=== PATIENT | male | born 1990 | race Caucasian/White ===

== ENCOUNTER 2018-01-09 13:38 | Emergency (ER) | payer OTHER ==
[~2018-01-09] VITALS: Ht 170.2 cm; Wt 90.7 kg
[~2018-01-09 13:38] MED LIST: AUGMENTIN 875875 MG PO; AZITHROMYCIN 2250 MG PO; BACTRIM DS TAB1 EACH PO; DUONEB 2.5-0.5 M3 ML INH; IBUDONE 5-2001 EACH PO; LEVAQUIN 750 M750 MG PO; MEDROLDOSEPACK PO; NEBULIZER MISCELL; NOHOMEMEDICATIONS; PREDNISONE 20 M20 MG PO; PROAIR HFA8.5 GM PO; VENTOLIN HFA 1818 GM INH
[2018-01-09] MEDS ORDERED: NORCO 5-325 TA1 EACH PO (15:51)
[2018-01-09] MEDS ORDERED: IBUPROFEN 600600 M1 PO (15:51)
[2018-01-09] MEDS ORDERED: AUGMENTIN 875-1 EACH PO (15:51)
[2018-01-09 16:07] VITALS: BP 110/78
== END 2018-01-09 16:08 | disposition home or self-care (01) ==
LOC: M.ERS 13:38
DX: S61.412A Laceration without foreign body of left hand, initial encounter (principal); Z23 Encounter for immunization; F17.210 Nicotine dependence, cigarettes, uncomplicated; Z88.8 Allergy status to other drugs, medicaments and biological substances; W26.0XXA Contact with knife, initial encounter; Y93.89 Activity, other specified; Y92.89 Other specified places as the place of occurrence of the external cause; Y99.8 Other external cause status

== ENCOUNTER 2019-06-01 14:41 | Emergency (ER) | payer OTHER ==
[~2019-06-01] VITALS: Ht 170.2 cm; Wt 85.7 kg
[~2019-06-01 14:41] MED LIST changes: +AUGMENTIN 875-1 EACH PO; +IBUPROFEN 600600 M1 PO; +NORCO 5-325 TA1 EACH PO
[2019-06-01 14:59] LABS: INFLUENZA A ANTIGEN Positive (Negative); INFLUENZA B ANTIGEN Negative (Negative)
[2019-06-01] MEDS ORDERED: TYLENOL WITH CO1 TA1 PO (15:19)
[2019-06-01] MEDS ORDERED: MEDROLDOSEPACK PO (15:19)
[2019-06-01] MEDS ORDERED: TAMIFLU75 MG PO (15:19)
[2019-06-01 15:29] VITALS: BP 124/89
== END 2019-06-01 15:31 | disposition home or self-care (01) ==
LOC: M.ERS 14:41
PROVIDERS: Family Medicine
DX: J09.X2 Influenza due to identified novel influenza A virus with other respiratory manifestations (principal); F17.210 Nicotine dependence, cigarettes, uncomplicated; Z91.048 Other nonmedicinal substance allergy status; Z88.8 Allergy status to other drugs, medicaments and biological substances

== ENCOUNTER 2019-11-04 12:57 | Emergency (ER) | payer OTHER ==
[~2019-11-04] VITALS: Ht 170.2 cm; Wt 86.2 kg
[~2019-11-04 12:57] MED LIST changes: +TAMIFLU75 MG PO; +TYLENOL WITH CO1 TA1 PO
[2019-11-04] MEDS ORDERED: CIPROFLOXIN HC2.5 M1 OPHTHALMIC (13:43)
[2019-11-04 13:56] VITALS: BP 150/91
== END 2019-11-04 13:57 | disposition home or self-care (01) ==
LOC: M.ERS 12:57
DX: T15.02XA Foreign body in cornea, left eye, initial encounter (principal); H53.142 Visual discomfort, left eye; F17.210 Nicotine dependence, cigarettes, uncomplicated; Z88.8 Allergy status to other drugs, medicaments and biological substances; Z79.899 Other long term (current) drug therapy; X58.XXXA Exposure to other specified factors, initial encounter; Y93.89 Activity, other specified; Y92.89 Other specified places as the place of occurrence of the external cause; Y99.8 Other external cause status

== ENCOUNTER 2019-12-20 08:08 | Emergency (ER) | payer OTHER ==
[~2019-12-20] VITALS: Ht 172.7 cm; Wt 83.9 kg
[~2019-12-20 08:08] MED LIST changes: +CIPROFLOXIN HC2.5 M1 OPHTHALMIC
[2019-12-20 09:39] VITALS: BP 129/84
== END 2019-12-20 09:39 | disposition home or self-care (01) ==
LOC: M.ERS 08:08
DX: B34.9 Viral infection, unspecified (principal); Z20.828 Contact with and (suspected) exposure to other viral communicable diseases; F17.210 Nicotine dependence, cigarettes, uncomplicated; Z88.8 Allergy status to other drugs, medicaments and biological substances

== ENCOUNTER 2020-05-31 10:36 | Emergency (ER) | payer OTHER ==
[~2020-05-31] VITALS: Ht 170.2 cm; Wt 86.2 kg
[2020-05-31 13:09] VITALS: BP 138/93
== END 2020-05-31 13:10 | disposition left against medical advice (07) ==
LOC: M.ERS 10:36
DX: R10.13 Epigastric pain (principal); Z53.21 Procedure and treatment not carried out due to patient leaving prior to being seen by health care provider